=== PATIENT | female | born 1955 | race Caucasian/White ===

== ENCOUNTER 2020-08-24 08:42 | Outpatient (CLI) | payer MEDICARE | END 2020-08-24 08:43 | disposition home or self-care (01) | LOC: BICRAD 08:42 | PROVIDERS: ATTEND Student in an Organized Health Care Education/Training Program | DX: M54.5 Low back pain (principal); M25.551 Pain in right hip; M25.552 Pain in left hip; G89.29 Other chronic pain; M47.816 Spondylosis without myelopathy or radiculopathy, lumbar region; M43.16 Spondylolisthesis, lumbar region; M43.17 Spondylolisthesis, lumbosacral region; M16.11 Unilateral primary osteoarthritis, right hip; R93.7 Abnormal findings on diagnostic imaging of other parts of musculoskeletal system | CPT/HCPCS: 72100 ==

== ENCOUNTER 2021-03-25 13:58 | Outpatient (CLI) | payer MEDICARE | END 2021-03-25 13:59 | disposition home or self-care (01) | LOC: BICRAD 13:58 | PROVIDERS: ATTEND Family Medicine | DX: M79.641 Pain in right hand (principal) ==